=== PATIENT | female | born 1945 | race Caucasian/White ===

== ENCOUNTER 2018-04-03 11:46 | Observation (INO) | payer MEDICARE, BC ==
[2018-04-03] MEDS ORDERED: Sodium Chloride 0.9% 10 ML Syringe FLUSH PRN (12:07)
[2018-04-03] MEDS ORDERED: Aspirin 81 MG Tab.Chew PO ONE (12:09)
--- NOTE | 2018-04-03 12:45 | EDM.PDOC ---
ED HPI GENERAL MEDICAL PROBLEM - General Stated Complaint: CHEST PAIN Time Seen by Provider: 04/03/18 11:55 Source of Information: Reports: Patient History Limitations: Reports: No Limitations - History of Present Illness INITIAL COMMENTS - FREE TEXT/NARRATIVE: PtEllen presents to ER with intermittent mid anterior chest and upper back pain. She characterizes the discomfort as an achy discomfort. She states that the discomfort developed at around 8 am. She took a short nap, woke up and the pain was gone. She states that she has no jaw, arm, or neck pain. No nausea, vomit, or shortness of breath. Onset: Today Onset Date: 04/03/18 Duration: Minutes: (30) Location: Reports: Chest, Back Quality: Reports: Ache Severity: Mild Associated Symptoms: Denies: Diaphoresis, Fever/Chills, Nausea/Vomiting, Shortness of Breath - Related Data Allergies Allergy/AdvReac Type Severity Reaction Status Date / Time No Known Allergies Allergy Verified 04/03/18 12:07 Home Meds: Home Meds . [No Known Home Meds] 04/03/18 [History] Past Medical History - Past Health History Medical/Surgical History: Denies Medical/Surgical History Social & Family History - Tobacco Use Smoking Status *Q: Never Smoker ED ROS GENERAL - Review of Systems Review Of Systems: See Below Constitutional: Reports: No Symptoms HEENT: Reports: No Symptoms Respiratory: Reports: No Symptoms Cardiovascular: Reports: Chest Pain Endocrine: Reports: No Symptoms GI/Abdominal: Reports: No Symptoms : Reports: No Symptoms Musculoskeletal: Reports: Back Pain Skin: Reports: No Symptoms Neurological: Reports: No Symptoms Psychiatric: Reports: No Symptoms Hematologic/Lymphatic: Reports: No Symptoms Immunologic: Reports: No Symptoms ED EXAM, GENERAL - Physical Exam Exam: See Below Exam Limited By: No Limitations General Appearance: Alert, WD/WN, No Apparent Distress Nose: Normal Inspection, Normal Mucosa, No Blood Throat/Mouth: Normal Inspection, Normal Lips, Normal Teeth, Normal Gums, Normal Oropharynx, Normal Voice, No Airway Compromise Head: Atraumatic, Normocephalic Neck: Normal Inspection, Supple, Non-Tender, Full Range of Motion Respiratory/Chest: No Respiratory Distress, Lungs Clear, Normal Breath Sounds, No Accessory Muscle Use, Chest Non-Tender Cardiovascular: Normal Peripheral Pulses, Regular Rate, Rhythm, No Edema, No Gallop, No JVD, No Murmur, No Rub GI/Abdominal: Normal Bowel Sounds, Soft, Non-Tender, No Organomegaly, No Distention, No Abnormal Bruit, No Mass (Female) Exam: Deferred Rectal (Female) Exam: Deferred Back Exam: Normal Inspection, Full Range of Motion, NT Extremities: Normal Inspection, Normal Range of Motion, Non-Tender, Normal Capillary Refill, No Pedal Edema Neurological: Alert, Oriented, CN II-XII Intact, Normal Cognition, Normal Gait, Normal Reflexes, No Motor/Sensory Deficits Psychiatric: Normal Affect, Normal Mood Skin Exam: Warm, Dry, Intact, Normal Color, No Rash EKG INTERPRETATION Rhythm: NSR [place]: Normal P-Wave: Present QRS: Normal ST-T: Other (inverted T wave in V4-reviewed by [facility]. [place] to be non-specific.) QT: Normal Course - Vital Signs Last Recorded V/S: Last Vital Signs Temp 36.9 C 04/03/18 11:55 Pulse 99 04/03/18 11:55 Resp 15 04/03/18 11:55 BP 127/67 04/03/18 11:55 Pulse Ox 100 04/03/18 11:55 - Orders/Labs/Meds Orders: Active Orders 24 hr Category Date Time Status Patient Status [ADT] Routine ADT 04/03/18 13:06 Ordered EKG Documentation Completion [RC] STAT Care 04/03/18 12:07 Active Sodium Chloride 0.9% [Saline Flush] Med 04/03/18 12:07 Active 10 ml FLUSH ASDIRECTED PRN Peripheral IV Insertion Adult [OM.PC] Routine Oth 04/03/18 12:08 Ordered Medication Orders Sodium Chloride (Saline Flush) 10 ml FLUSH ASDIRECTED PRN PRN Reason: Keep Vein Open Last Admin: 04/03/18 12:26 Dose: 10 ml Labs: Laboratory Tests 04/03/18 04/03/18 04/03/18 Range/Units 12:24 12:24 12:24 WBC 3.8 L (4.0-10.0) x10^3/uL RBC 4.25 (4.00-5.50) x10^6/uL Hgb 12.7 (12.0-16.0) g/dL Hct 38.1 (33.0-47.0) % MCV 89.6 (78.0-93.0) fL MCH 29.9 (26.0-32.0) pg MCHC 33.3 (32.0-36.0) g/dL RDW Coeff of Deuce 14.2 (10.0-15.0) % Plt Count 201 (130-400) x10^3/uL Neut % (Auto) 68.0 (50.0-80.0) % Lymph % (Auto) 23.7 L (25.0-50.0) % [place] % (Auto) 6.5 (2.0-11.0) % Eos % (Auto) 1.3 (0.0-4.0) % Baso % (Auto) 0.5 (0.2-1.2) % PT 10.3 (9.6-11.4) SEC INR 1.0 L (2.0-3.5) Sodium 141 (136-145) mmol/L Potassium 4.3 (3.5-5.1) mmol/L Chloride 104 (98-107) mmol/L Carbon Dioxide 28 (21-32) mmol/L Anion Gap 13.3 (10-20) mmol/L BUN 23 H (7-18) mg/dL Creatinine 0.9 (0.55-1.02) mg/dL Est Cr Clr Drug Dosing 49.35 mL/min Estimated GFR (MDRD) > 60 Glucose 103 (74-106) mg/dL Calcium 8.8 (8.5-10.1) mg/dL Corrected Calcium 9.36 (8.5-10.1) mg/dL Phosphorus 3.5 (2.6-4.7) mg/dL Magnesium 2.1 (1.8-2.4) mg/dL Total Bilirubin 0.5 (0.2-1.0) mg/dL AST 28 (15-37) U/L ALT 31 (14-59) U/L Alkaline Phosphatase 66 (46-116) U/L Troponin I < 0.017 (<=0.056) ng/mL C-Reactive Protein 0.6 (<=0.9) mg/dL Total Protein 6.9 (6.4-8.2) g/dL Albumin 3.3 L (3.4-5.0) g/dL Globulin 3.6 Albumin/Globulin Ratio 0.92 Meds: Medications Generic Name Dose Route Start Last Admin Trade Name Leonardo PRN Reason Stop Dose Admin Sodium Chloride 10 ml 04/03/18 12:07 04/03/18 12:26 Saline Flush FLUSH 10 ml ASDIRECTED PRN Administration Keep Vein Open Discontinued Medications Generic Name Dose Route Start Last Admin Trade Name Leonardo PRN Reason Stop Dose Admin Aspirin 324 mg 04/03/18 12:09 04/03/18 12:25 Aspirin PO 04/03/18 12:10 324 mg ONETIME ONE Administration Departure - Departure Time of Disposition: 13:25 Disposition: Refer to Observation Clinical Impression: Chest pain - Discharge Information - Problem List Review Problem List Initiated/Reviewed/Updated: Yes - My Orders Last 24 Hours: My Active Orders 04/03/18 12:07 EKG Documentation Completion [RC] STAT Sodium Chloride 0.9% [Saline Flush] 10 ml FLUSH ASDIRECTED PRN 04/03/18 12:08 Peripheral IV Insertion Adult [OM.PC] Routine 04/03/18 13:06 Patient Status [ADT] Routine - Assessment/Plan Last 24 Hours: My Active Orders 04/03/18 12:07 EKG Documentation Completion [RC] STAT Sodium Chloride 0.9% [Saline Flush] 10 ml FLUSH ASDIRECTED PRN 04/03/18 12:08 Peripheral IV Insertion Adult [OM.PC] Routine 04/03/18 13:06 Patient Status [ADT] Routine Assessment:: Discussed findings with pt. and family. Will admit observation and trend troponin and EKG (troponin is negative at this time). Likely will discharge later this evening. She is a code 1.
[2018-04-03 12:54] LABS: CHLORIDE,CL 104 mmol/L (98-107); SODIUM,NA 141 mmol/L (136-145)
[2018-04-03 12:58] LABS: ANION GAP 13.3 mmol/L (10-20)
--- NOTE | 2018-04-03 18:48 | PCM.DCSUM1 ---
Discharge Summary - Hospital Course Free Text/Narrative:: Pt. was admitted for serial troponin/EKG following presenting to ER with chest pain. She has been symptom free since admit. Serial troponin and EKG are unchanged. Diagnosis: Stroke: No - Discharge Data Discharge Date: 04/03/18 Discharge Disposition: Home, Self-Care 01 Condition: Good - Discharge Diagnosis/Problem(s) (1) Chest pain SNOMED Code(s): 82129856 ICD Code: R07.9 - CHEST PAIN, UNSPECIFIED Status: Acute Current Visit: Yes - Discharge Plan Home Medications: Home Meds Ascorbic Acid [Vitamin C] 100 mg PO DAILY 04/03/18 [History] Multivitamin [Multi-Vitamin Daily] 1 tab PO DAILY PRN 04/03/18 [History] Sodium Chloride/KCl [Thermotabs] 1 tab PO DAILY PRN 04/03/18 [History] Thiamine HCl [B-1] 100 mg PO BEDTIME 04/03/18 [History] Referrals: Kevin Walker MD [Primary Care Provider] - - General Info Date of Service: 04/03/18 Functional Status: Reports: Pain Controlled - Review of Systems General: Reports: No Symptoms HEENT: Reports: No Symptoms Pulmonary: Reports: No Symptoms Cardiovascular: Reports: Other (see HPI) Gastrointestinal: Reports: No Symptoms Genitourinary: Reports: No Symptoms Musculoskeletal: Reports: No Symptoms Skin: Reports: No Symptoms Neurological: Reports: No Symptoms Psychiatric: Reports: No Symptoms - Patient Data Vitals - Most Recent: Last Vital Signs Temp 37.0 C 04/03/18 17:25 Pulse 59 L 04/03/18 17:25 Resp 18 04/03/18 17:25 BP 111/59 L 04/03/18 17:25 Pulse Ox 98 04/03/18 17:25 Weight - Most Recent: 65.998 kg I&O - Last 24 hours: Intake & Output 04/03/18 04/03/18 04/03/18 06:59 14:59 22:59 Intake Total 120 120 Output Total 300 300 Balance -180 -180 Lab Results - Last 24 hrs: Laboratory Results - last 24 hr 04/03/18 04/03/18 04/03/18 Range/Units 12:24 12:24 12:24 WBC 3.8 L (4.0-10.0) x10^3/uL RBC 4.25 (4.00-5.50) x10^6/uL Hgb 12.7 (12.0-16.0) g/dL Hct 38.1 (33.0-47.0) % MCV 89.6 (78.0-93.0) fL MCH 29.9 (26.0-32.0) pg MCHC 33.3 (32.0-36.0) g/dL RDW Coeff of Deuce 14.2 (10.0-15.0) % Plt Count 201 (130-400) x10^3/uL Neut % (Auto) 68.0 (50.0-80.0) % Lymph % (Auto) 23.7 L (25.0-50.0) % [place] % (Auto) 6.5 (2.0-11.0) % Eos % (Auto) 1.3 (0.0-4.0) % Baso % (Auto) 0.5 (0.2-1.2) % PT 10.3 (9.6-11.4) SEC INR 1.0 L (2.0-3.5) Sodium 141 (136-145) mmol/L Potassium 4.3 (3.5-5.1) mmol/L Chloride 104 (98-107) mmol/L Carbon Dioxide 28 (21-32) mmol/L Anion Gap 13.3 (10-20) mmol/L BUN 23 H (7-18) mg/dL Creatinine 0.9 (0.55-1.02) mg/dL Est Cr Clr Drug Dosing 49.35 mL/min Estimated GFR (MDRD) > 60 Glucose 103 (74-106) mg/dL Calcium 8.8 (8.5-10.1) mg/dL Corrected Calcium 9.36 (8.5-10.1) mg/dL Phosphorus 3.5 (2.6-4.7) mg/dL Magnesium 2.1 (1.8-2.4) mg/dL Total Bilirubin 0.5 (0.2-1.0) mg/dL AST 28 (15-37) U/L ALT 31 (14-59) U/L Alkaline Phosphatase 66 (46-116) U/L Troponin I < 0.017 (<=0.056) ng/mL C-Reactive Protein 0.6 (<=0.9) mg/dL Total Protein 6.9 (6.4-8.2) g/dL Albumin 3.3 L (3.4-5.0) g/dL Globulin 3.6 Albumin/Globulin Ratio 0.92 Med Orders - Current: Current Medications Sodium Chloride (Saline Flush) 10 ml FLUSH ASDIRECTED PRN PRN Reason: Keep Vein Open Last Admin: 04/03/18 12:26 Dose: 10 ml Discontinued Medications Aspirin (Aspirin) 324 mg PO ONETIME ONE Stop: 04/03/18 12:10 Last Admin: 04/03/18 12:25 Dose: 324 mg - Exam General: Reports: Alert Lungs: Reports: Clear to Auscultation, Normal Respiratory Effort Cardiovascular: Reports: Regular Rate, Regular Rhythm GI/Abdominal Exam: Normal Bowel Sounds, Soft, Non-Tender, No Organomegaly, No Distention, No Abnormal Bruit, No Mass, Pelvis Stable (Female) Exam: Deferred Rectal (Female) Exam: Deferred Back Exam: Reports: Normal Inspection, Full Range of Motion Extremities: Normal Inspection, Normal Range of Motion, Non-Tender, No Pedal Edema, Normal Capillary Refill Skin: Reports: Warm, Dry, Intact
== END 2018-04-03 19:24 | disposition home or self-care (01) ==
LOC: VM.ED 11:46 → VM.MS 13:06
PROVIDERS: ADMIT Physician Assistant; ATTEND Physician Assistant
DX: R07.9 Chest pain, unspecified (principal); Z79.82 Long term (current) use of aspirin; Z79.899 Other long term (current) drug therapy
CPT/HCPCS: 36415; 80053; 83735; 84100; 84484; 85025; 85610; 86140; 93005; 99285; A9270; G0378; J7050

== ENCOUNTER 2019-01-07 08:01 | Day surgery (SDC) | payer MEDICARE, BC ==
[~2019-01-07 08:01] MED LIST: Lactated Ringers 1,000 ML IV SCH; Sodium Chloride 0.9% 10 ML Syringe FLUSH PRN
[2019-01-07] MEDS ORDERED: Propofol 200 MG/20 ML SDV ONE (09:34)
--- NOTE | 2019-01-07 11:17 | OR ---
DATE OF SURGERY: 01/07/2019. REFERRING PROVIDER: Kevin Walker MD. PRE-OPERATIVE DIAGNOSES: 1. Chronic abdominal pain, right lower quadrant greater than left lower quadrant. Pain improved with bowel movements. 2. Change in bowel movements. The patient states she is more on the constipated side, but does still have bowel movement about every 1 to 2 days. 3. Mild anemia. 4. Last colonoscopy was about 7 to 8 years ago. POST-OPERATIVE DIAGNOSES: 1. A 5 mm polyp at 100 cm, removed with hot snare. 2. Mild sigmoid diverticulosis. 3. Mild hemorrhoids, not acutely inflamed. 4. Normal distal ileum. PROCEDURE: Colonoscopy with polypectomy x1 using hot snare. SURGEON: Benjy Lovell M.D. ANESTHESIA: Monitored anesthesia care. BOWEL PREP: Good. Flora is a 74-year-old female, who was brought to the endoscopy suite after discussing risks and benefits of the procedure. Informed consent was obtained for conscious sedation and colonoscopy with or without biopsy and/or polypectomy. We also discussed possibility of missed lesions. Pre-procedure exam was unremarkable. IV, oxygen, and monitors were placed. The patient was placed in the left lateral decubitus position. Sedation was administered and a digital rectal exam was performed and unremarkable. Colonoscope was passed into the rectum and slowly advanced all the way to the cecum. Cecum was viewed and photographed. The ileocecal valve was intubated and distal ileum was normal in appearance. The colonoscope was slowly withdrawn and the mucosa was closed observed in a direct circumferential manner. The ascending colon was unremarkable. The transverse colon revealed a 5 mm polyp at 100 cm, removed with hot snare. The descending colon was unremarkable. The sigmoid colon was remarkable for some mild diverticulosis. Retroflexion was performed and rectal mucosa revealed some mild internal hemorrhoids, not acutely inflamed. Scope was removed. The patient tolerated the procedure well. The patient was monitored until that baseline status. Discharge instructions were reviewed and the patient was discharged in good condition. COMPLICATIONS: None. TOTAL TIME: 18 minutes. ESTIMATED BLOOD LOSS: None. RECOMMENDATIONS/FOLLOW-UP: We will await results of path report to determine ideal followup interval. I would like to kindly thank Dr. Kevin Walker for this referral. DMB: 01/07/2019 10:30:10 MODL: 01/07/2019 11:00:31 /[id number]
== END 2019-01-07 11:35 | disposition home or self-care (01) ==
LOC: VM.SDS 08:01
PROVIDERS: ATTEND Family Medicine
DX: D12.3 Benign neoplasm of transverse colon (principal); D64.9 Anemia, unspecified; K57.30 Diverticulosis of large intestine without perforation or abscess without bleeding; K64.8 Other hemorrhoids
CPT/HCPCS: 45385; 88305; J2704; J7120; 45384

== ENCOUNTER 2020-05-29 18:46 | Emergency (ER) | payer MEDICARE, BC ==
--- NOTE | 2020-05-29 19:15 | EDM.PDOC ---
ED HPI GENERAL MEDICAL PROBLEM - General Chief Complaint: Skin Complaint Stated Complaint: LEFT MIDDLE FINGER Time Seen by Provider: 05/29/20 19:02 Source of Information: Reports: Patient - History of Present Illness INITIAL COMMENTS - FREE TEXT/NARRATIVE: Flora is a 75 y/o lady who comes to the ER with a piece of glass embedded in her left middle finger. She reports that a glass lampshade broke earlier today and she was cleaning it up and must have gotten a piece in her finger. She has tried to get it out, but cannot. She keeps feeling something in her finger when she rubs over it. Left Finger-Middle Pain Score (Numeric/FACES): 1 - Related Data Allergies Allergy/AdvReac Type Severity Reaction Status Date / Time No Known Allergies Allergy Verified 05/29/20 19:02 Home Meds: Home Meds Ascorbic Acid [Vitamin C] 500 mg PO BID 04/03/18 [History] Multivitamin [Multi-Vitamin Daily] 0.5 tab PO DAILY PRN 04/03/18 [History] Thiamine HCl [B-1] 100 mg PO BEDTIME 04/03/18 [History] Non-Formulary Medication [NF Drug] 45 mg PO DAILY 01/01/19 [History] Potassium 99 mg PO DAILY 01/01/19 [History] Vitamin E 1,000 unit PO Q2D 01/07/19 [History] Past Medical History - Past Health History Medical/Surgical History: Denies Medical/Surgical History HEENT History: Reports: Cataract, Impaired Vision Other HEENT History: myopia. presbyopia. labyrinthitis Cardiovascular History: Reports: None Other Cardiovascular History: capillary disease. chest pain Respiratory History: Reports: None Gastrointestinal History: Reports: None Genitourinary History: Reports: None TECHNICIAN AUTOMATIC History: Reports: Other TECHNICIAN AUTOMATIC History: x4 Musculoskeletal History: Reports: Arthritis Psychiatric History: Reports: None Other Psychiatric History: disturbance of sleep behavior Other Endocrine/Metabolic History: wt loss Oncologic (Cancer) History: Reports: Basal Cell Carcinoma Dermatologic History: Reports: Other (See Below) Other Dermatologic History: MOHS x2 Nose and Arm. Hx of Skin Cancer spots on face and arms. Dr. Wooten with [facility] in [place]. seborrheic keratosis. contact dermatitis and eczema. dyschromia - Past Surgical History HEENT Surgical History: Reports: Tonsillectomy Cardiovascular Surgical History: Reports: None GI Surgical History: Reports: None Female Surgical History: Reports: Breast Biopsy Other Female Surgeries/Procedures: Breast Biopsy hx 1960's. Musculoskeletal Surgical History: Reports: None Dermatological Surgical History: Reports: None Social & Family History - Family History Cardiac: Reports: Prior Cardiac Arrest Other Cardiac Family History: Sister passed from Cardiac event, Father and Mother had CHF Neurological: Reports: TIA - Tobacco Use Tobacco Use Status *Q: Unknown Ever Used Tobacco - Caffeine Use Caffeine Use: Reports: Coffee, Tea Caffeine Use Comment: x3 days a week ED ROS GENERAL - Review of Systems Review Of Systems: See Below Constitutional: Reports: No Symptoms HEENT: Reports: No Symptoms Respiratory: Reports: No Symptoms Cardiovascular: Reports: No Symptoms Endocrine: Reports: No Symptoms GI/Abdominal: Reports: No Symptoms : Reports: No Symptoms Musculoskeletal: Reports: No Symptoms Skin: Reports: Other (small wound left middle finger) Neurological: Reports: No Symptoms Psychiatric: Reports: No Symptoms Hematologic/Lymphatic: Reports: No Symptoms Immunologic: Reports: No Symptoms ED EXAM, SKIN/RASH Exam: See Below General Appearance: Alert, WD/WN, No Apparent Distress (Elderly female) Head: Atraumatic, Normocephalic Respiratory/Chest: No Respiratory Distress (Female) Exam: Deferred Rectal (Female) Exam: Deferred Back Exam: Normal Inspection Extremities: Other (note very small laceration to distal portion of left middle finger, no visable foreign body noted) Neurological: Alert, Oriented, CN II-XII Intact Psychiatric: Normal Affect Skin: Warm, Dry, Intact, Normal Color Lymphatic: No Adenopathy Course - Vital Signs Text/Narrative:: 190 The patient was seen by the FIRE TENDER. A 27g needle was used to gently sweep across the very small injury to the left middle finger. A small amount of bleeding noted. Patient reported that she no longer felt any pain in the area despite no observable piece of glass noted. The wound was cleansed and dressed with Bacitracin and a bandaid. The patient was given discharge instructions and left the ER in stable condition. Last Recorded V/S: Last Vital Signs Temp 36.5 C 05/29/20 18:52 Pulse 79 05/29/20 18:52 Resp 16 05/29/20 18:52 BP 157/75 H 05/29/20 18:52 Pulse Ox 98 1026/20 18:52 Departure - Departure Time of Disposition: 19:10 Disposition: Home, Self-Care 01 Condition: Good Clinical Impression: Foreign body (FB) in soft tissue - Discharge Information *PRESCRIPTION DRUG MONITORING PROGRAM REVIEWED*: Not Applicable *COPY OF PRESCRIPTION DRUG MONITORING REPORT IN PATIENT OSCAR: Not Applicable Instructions: Skin Foreign Body Referrals: Kevin Walker MD [Primary Care Provider] - Sepsis Event Note (ED) - Evaluation Sepsis Screening Result: No Definite Risk - Focused Exam Vital Signs: Vital Signs Temp Pulse Resp BP Pulse Ox 05/29/20 18:52 36.5 C 79 16 157/75 H 98 - Assessment/Plan Assessment:: 1)Superficial Skin Foreign Body Plan: -Keep the wound clean with soap and water -Dress area with bandaid and antibiotic ointment for the next 1-2 days -Watch for any infection and follow up with PCP if needed
== END 2020-05-29 19:23 | disposition home or self-care (01) ==
LOC: VM.ED 18:46
DX: S61.223A Laceration with foreign body of left middle finger without damage to nail, initial encounter (principal); Z79.899 Other long term (current) drug therapy; W25.XXXA Contact with sharp glass, initial encounter
CPT/HCPCS: 99283

== ENCOUNTER 2022-10-27 12:13 | Emergency (ER) | payer MEDICARE, BC | END 2022-10-27 14:27 | disposition home or self-care (01) | LOC: VM.ED 12:13 | DX: S52.571A Other intraarticular fracture of lower end of right radius, initial encounter for closed fracture (principal); W00.9XXA Unspecified fall due to ice and snow, initial encounter | CPT/HCPCS: 29125; 73110-LT; 99283 ==

== ENCOUNTER 2023-06-18 10:15 | Emergency (ER) | payer MEDICARE, BC ==
[2023-06-18] MEDS ORDERED: Sodium Chloride 0.9% 1,000 ML IV ONE ×3 (10:20→12:36)
[2023-06-18] MEDS ORDERED: Iopamidol 612 MG/ML 100 ML Bottle IVPUSH ONE (10:31)
[2023-06-18 10:49] LABS: HEMATOCRIT 46.1 % (33.0-47.0); HEMOGLOBIN 14.8 g/dL (12.0-16.0); MEAN CORPUSCULAR HEMOGLOBIN 28.1 pg (26.0-32.0); MEAN CORPUSCULAR HGB CONC 32.1 g/dL (32.0-36.0); MEAN CORPUSCULAR VOLUME 87.6 fL (78.0-93.0); PLATELET COUNT,PLT 310 x10^3/uL (130-400); RED BLOOD CELL COUNT 5.26 x10^6/uL (4.00-5.50)
[2023-06-18 10:53] LABS: WHITE BLOOD CELL COUNT,WBC 1.6 x10^3/uL (4.0-10.0)
[2023-06-18 11:02] LABS: BAND PERCENT MAN 2 % (0-6); LYMPHOCYTES ABSOLUTE MAN 0.3 x10^3/uL (1.0-4.8); LYMPHOCYTES PERCENT MAN 19 % (25-50); MONOCYTES ABSOLUTE MAN 0.2 x10^3/uL (0.0-0.8); MONOCYTES PERCENT MAN 10 % (2-11); NEUTROPHILS ABSOLUTE MAN 1.1 x10^3/uL (1.8-7.7); SEG NEUTROPHILS PERCENT MAN 69 % (50-80)
[2023-06-18 11:03] LABS: PLATELET COUNT ESTIMATE ADEQUATE
[2023-06-18 11:06] LABS: CREATININE 2.6 mg/dL (0.55-1.02)
[2023-06-18 11:07] LABS: ESTIMATED GFR 18 mL/min (>=60)
[2023-06-18 11:12] LABS: A/G RATIO 0.78; ALANINE AMINOTRANSFERASE,ALT 22 U/L (14-59); ALBUMIN 2.8 g/dL (3.4-5.0); ALKALINE PHOSPHATASE 65 U/L (46-116); ASPARTATE AMNIOTRANSFERASE,AST 25 U/L (15-37); BILIRUBIN TOTAL 0.8 mg/dL (0.2-1.0); BLOOD UREA NITROGEN,BUN 43 mg/dL (7-18); CALCIUM 8.9 mg/dL (8.5-10.1); CARBON DIOXIDE,CO2 21 mmol/L (21-32); CHLORIDE,CL 100 mmol/L (98-107); GLUCOSE RANDOM 175 mg/dL (70-99); POTASSIUM,K 3.5 mmol/L (3.5-5.1); PROTEIN TOTAL,TP 6.4 g/dL (6.4-8.2); SODIUM,NA 136 mmol/L (136-145)
[2023-06-18 11:13] LABS: ANION GAP 18.5 mmol/L (5-15)
[2023-06-18] MEDS ORDERED: cefTRIAXone 1 GM Vial IVPUSH ONE (11:18)
[2023-06-18] MEDS ORDERED: Meropenem 1 GM SDV IVPUSH ONE (12:21)
[2023-06-18] MEDS ORDERED: Sodium Chloride 0.9% 1,000 ML IV SCH (12:45)
[2023-06-18] MEDS ORDERED: diphenhydrAMINE 50 MG/ML SDV IVPUSH ONE (13:18)
== END 2023-06-18 13:20 | disposition short-term general hospital (02) ==
LOC: VM.ED 10:15
DX: K63.1 Perforation of intestine (nontraumatic) (principal)
CPT/HCPCS: 36415; 70450; 71046; 74176; 80053; 83605; 84145; 84484; 85025; 86140; 87040; 93010; 99284; 99291-25; 99292